=== PATIENT | female | born 1940 | race Hispanic/Latino ===

== ENCOUNTER → 2017-10-14 | Outpatient (CLI) | payer OTHER ==
[~2017-10-14] MED LIST: AMLO5TAB2 PO; ASPI-555 PO; BENA20TA10 PO; CALC-866 PO; CETI10TA57 PO; FLUTICASONE NASAL; FOLI1TAB15 PO; METFORMIN PO; OMEP40CA37 PO; ROSU5TAB PO; TRAM-355 PO; VITA1CAP PO; [UNRECOGNIZED DRUG - OTHER] PO
== END | disposition home or self-care (01) ==
LOC: RAH 11:49
PROVIDERS: ATTEND Internal Medicine
DX: M16.0 Bilateral primary osteoarthritis of hip (principal)
CPT/HCPCS: 73521

== ENCOUNTER → 2018-02-03 | Outpatient (CLI) | payer OTHER ==
[~2018-02-03] MED LIST changes: -AMLO5TAB2 PO; +AMLO5TAB7 PO; +COQ10 PO; +MONT10TA21 PO; -OMEP40CA37 PO; -TRAM-355 PO; +[UNRECOGNIZED DRUG - OTHER] PO
== END | disposition home or self-care (01) ==
LOC: RAH 14:46
PROVIDERS: ATTEND Internal Medicine
DX: M51.37 Other intervertebral disc degeneration, lumbosacral region (principal); M48.07 Spinal stenosis, lumbosacral region; M76.9 Unspecified enthesopathy, lower limb, excluding foot
CPT/HCPCS: 72148

== ENCOUNTER → 2018-03-12 | Outpatient (CLI) | payer OTHER | END | disposition home or self-care (01) | LOC: RAH 07:31 | PROVIDERS: ATTEND Internal Medicine Gastroenterology | DX: I12.9 Hypertensive chronic kidney disease with stage 1 through stage 4 chronic kidney disease, or unspecified chronic kidney disease (principal); E11.22 Type 2 diabetes mellitus with diabetic chronic kidney disease; N18.9 Chronic kidney disease, unspecified; Z90.5 Acquired absence of kidney; Z90.49 Acquired absence of other specified parts of digestive tract | CPT/HCPCS: 76700 ==

== ENCOUNTER → 2018-08-11 | Outpatient (CLI) | payer MEDICARE ==
[~2018-08-11] MED LIST changes: -AMLO5TAB7 PO; +AMLO5TAB9 PO
[2018-08-11 13:05] LABS: CREATININE 1.1 mg/dL (0.5-1.5)
== END | disposition home or self-care (01) ==
LOC: LAB 12:16
PROVIDERS: ATTEND Internal Medicine
DX: R10.11 Right upper quadrant pain (principal)
CPT/HCPCS: 36415; 82565; 84520

== ENCOUNTER → 2018-08-12 | Outpatient (CLI) | payer MEDICARE ==
[~2018-08-12] MED LIST changes: +GADODIAMIDE 5 MMOL/10 ML VIAL 5 MMOL/10 ML ML IV ONE
== END | disposition home or self-care (01) ==
LOC: RAH 07:26
PROVIDERS: ATTEND Internal Medicine
DX: R10.11 Right upper quadrant pain (principal); Z90.49 Acquired absence of other specified parts of digestive tract; Z90.5 Acquired absence of kidney
CPT/HCPCS: 74183; A9579

== ENCOUNTER → 2019-04-29 | Outpatient (CLI) | payer MEDICARE ==
[~2019-04-29] MED LIST changes: -GADODIAMIDE 5 MMOL/10 ML VIAL 5 MMOL/10 ML ML IV ONE
== END | disposition home or self-care (01) ==
LOC: RAH 09:22
PROVIDERS: ATTEND Internal Medicine
DX: G31.9 Degenerative disease of nervous system, unspecified (principal); I10 Essential (primary) hypertension; G45.9 Transient cerebral ischemic attack, unspecified; M47.819 Spondylosis without myelopathy or radiculopathy, site unspecified
CPT/HCPCS: 70450

== ENCOUNTER → 2019-05-04 | Outpatient (CLI) | payer MEDICARE | END | disposition home or self-care (01) | LOC: RAH 09:33 | PROVIDERS: ATTEND Internal Medicine | DX: I34.0 Nonrheumatic mitral (valve) insufficiency (principal); G45.9 Transient cerebral ischemic attack, unspecified; I10 Essential (primary) hypertension | CPT/HCPCS: 93306; 93880 ==

== ENCOUNTER → 2019-08-30 | Outpatient (CLI) | payer OTHER ==
[2019-08-30 13:13] LABS: BASOPHILS % (AUTO) 0.4 % (0.0-5.0); EOSINOPHILS % (AUTO) 1.9 % (0.0-8.0); HEMATOCRIT 39.4 % (36-48); LYMPHOCYTES % (AUTO) 16.8 % (21.0-51.0); MEAN CORPUSCULAR HEMOGLOBIN 31.6 pg (27.0-33.0); MEAN CORPUSCULAR HGB CONC 33.2 g/dL (32.0-36.0); MEAN CORPUSCULAR VOLUME 94.9 fL (79-99); MONOCYTES % (AUTO) 9.2 % (3.0-13.0); NEUTROPHILS % (AUTO) 71.3 % (40.0-77.0); PLATELET COUNT (AUTO) 273 K/uL (130-400); RED BLOOD CELL COUNT(AUTO) 4.15 MIL/uL (4.00-5.50); RED CELL DISTRIBUTION WIDTH 13.2 % (11.0-15.5); WHITE BLOOD COUNT (AUTO) 5.4 K/uL (4.8-10.8)
[2019-08-30 13:20] LABS: CREATININE 1.2 mg/dL (0.5-1.5); POTASSIUM 4.2 mmol/L (3.5-5.1)
== END | disposition home or self-care (01) ==
LOC: LAB 11:58
PROVIDERS: ATTEND Urology
DX: C64.1 Malignant neoplasm of right kidney, except renal pelvis (principal)
CPT/HCPCS: 36415; 80048; 85025

== ENCOUNTER → 2019-09-05 | Outpatient (CLI) | payer MEDICARE, OTHER ==
[~2019-09-05] MED LIST changes: +AMLO-257 PO; -AMLO5TAB9 PO; -ASPI-555 PO; +ASPI-556 PO; +IOHEXOL-350 75 ML VIAL IV ONE
== END | disposition home or self-care (01) ==
LOC: RAH 08:51
PROVIDERS: ATTEND Urology
DX: N83.202 Unspecified ovarian cyst, left side (principal); C64.1 Malignant neoplasm of right kidney, except renal pelvis
CPT/HCPCS: 74178; Q9967

== ENCOUNTER → 2019-09-26 | Outpatient (CLI) | payer OTHER ==
[~2019-09-26] MED LIST changes: -AMLO-257 PO; +AMLO5TAB9 PO; +ASPI-555 PO; -ASPI-556 PO; -IOHEXOL-350 75 ML VIAL IV ONE
== END | disposition home or self-care (01) ==
LOC: RAH 11:01
PROVIDERS: ATTEND Obstetrics & Gynecology
DX: N83.291 Other ovarian cyst, right side (principal); N83.292 Other ovarian cyst, left side
CPT/HCPCS: 76856

== ENCOUNTER → 2019-10-24 | Outpatient (CLI) | payer OTHER | END | disposition home or self-care (01) | LOC: RAH 11:38 | PROVIDERS: ATTEND Internal Medicine | DX: Z12.31 Encounter for screening mammogram for malignant neoplasm of breast (principal) ==

== ENCOUNTER → 2019-11-08 | Outpatient (CLI) | payer OTHER ==
[~2019-11-08] MED LIST changes: -ASPI-555 PO; +ASPI-556 PO
== END | disposition home or self-care (01) ==
LOC: RAH 11:24
PROVIDERS: ATTEND Obstetrics & Gynecology
DX: N83.291 Other ovarian cyst, right side (principal); N83.292 Other ovarian cyst, left side; Z90.710 Acquired absence of both cervix and uterus
CPT/HCPCS: 76857

== ENCOUNTER → 2020-02-13 | Outpatient (CLI) | payer OTHER | END | disposition home or self-care (01) | LOC: RAH 10:00 | PROVIDERS: ATTEND Obstetrics & Gynecology | DX: N83.291 Other ovarian cyst, right side (principal); N83.292 Other ovarian cyst, left side | CPT/HCPCS: 76856 ==

== ENCOUNTER → 2020-06-15 | Outpatient (CLI) | payer OTHER ==
[~2020-06-15] MED LIST changes: +AMLO-257 PO; -AMLO5TAB9 PO
== END | disposition home or self-care (01) ==
LOC: RAH 08:01
PROVIDERS: ATTEND Internal Medicine Gastroenterology
DX: R10.11 Right upper quadrant pain (principal); Z90.49 Acquired absence of other specified parts of digestive tract
CPT/HCPCS: 76700

== ENCOUNTER 2020-06-30 13:05 | Emergency (ER) | payer OTHER ==
[2020-06-30 14:39] LABS: BASOPHILS % (AUTO) 0.6 % (0.0-5.0); EOSINOPHILS % (AUTO) 1.9 % (0.0-8.0); HEMATOCRIT 44.9 % (36-48); LYMPHOCYTES % (AUTO) 20.7 % (21.0-51.0); MEAN CORPUSCULAR HEMOGLOBIN 31.1 pg (27.0-33.0); MEAN CORPUSCULAR HGB CONC 33.4 g/dL (32.0-36.0); MEAN CORPUSCULAR VOLUME 93.2 fL (79-99); MONOCYTES % (AUTO) 7.6 % (3.0-13.0); PLATELET COUNT (AUTO) 307 K/uL (130-400); RED BLOOD CELL COUNT(AUTO) 4.82 MIL/uL (4.00-5.50); WHITE BLOOD COUNT (AUTO) 5.2 K/uL (4.8-10.8)
[2020-06-30 15:32] LABS: CREATININE 1.1 mg/dL (0.5-1.5); POTASSIUM 4.3 mmol/L (3.5-5.1)
[2020-06-30 15:36] LABS: ALBUMIN 4.7 g/dL (3.5-5.0); BILIRUBIN,TOTAL 0.3 mg/dL (0.2-1.0); TOTAL PROTEIN, SERUM 8.4 g/dL (6.0-8.3)
== END 2020-06-30 16:40 | disposition home or self-care (01) ==
LOC: EDH 13:05
DX: R53.1 Weakness (principal); R53.83 Other fatigue; R06.02 Shortness of breath; Z20.822 Contact with and (suspected) exposure to COVID-19; I10 Essential (primary) hypertension; E11.9 Type 2 diabetes mellitus without complications
CPT/HCPCS: 36415; 71045; 80053; 84484; 85025; 87426; 93005; 99285; U0003

== ENCOUNTER → 2020-08-08 | Outpatient (CLI) | payer OTHER | END | disposition home or self-care (01) | LOC: OIH 10:26 | PROVIDERS: ATTEND Internal Medicine Cardiovascular Disease | DX: Z13.6 Encounter for screening for cardiovascular disorders (principal) | CPT/HCPCS: 75571 ==

== ENCOUNTER → 2020-08-14 | Outpatient (CLI) | payer OTHER | END | disposition home or self-care (01) | LOC: RAH 10:59 | PROVIDERS: ATTEND Obstetrics & Gynecology | DX: N83.292 Other ovarian cyst, left side (principal); N83.291 Other ovarian cyst, right side | CPT/HCPCS: 76856 ==

== ENCOUNTER → 2020-08-15 | Outpatient (CLI) | payer OTHER | END | disposition home or self-care (01) | LOC: SHCH 08:52 | PROVIDERS: ATTEND Internal Medicine Cardiovascular Disease | DX: R06.09 Other forms of dyspnea (principal) | CPT/HCPCS: 93306; 93356 ==

== ENCOUNTER → 2020-09-06 | Outpatient (CLI) | payer OTHER ==
[~2020-09-06] VITALS: Ht 167.6 cm; Wt 74.8 kg
[~2020-09-06] MED LIST changes: +REGADENOSON 0.4 MG/5 ML PF SYG IVP SCH
== END | disposition home or self-care (01) ==
LOC: SHCH 08:44
PROVIDERS: ATTEND Internal Medicine Cardiovascular Disease
DX: I25.10 Atherosclerotic heart disease of native coronary artery without angina pectoris (principal)
CPT/HCPCS: 78452; 93017; 96374; A9500 ×2

== ENCOUNTER → 2020-11-29 | Outpatient (CLI) | payer OTHER ==
[~2020-11-29] MED LIST changes: -REGADENOSON 0.4 MG/5 ML PF SYG IVP SCH
== END | disposition home or self-care (01) ==
LOC: RAH 09:44
PROVIDERS: ATTEND Internal Medicine
DX: R10.11 Right upper quadrant pain (principal); R07.81 Pleurodynia
CPT/HCPCS: 71046; 71100

== ENCOUNTER → 2022-08-27 | Outpatient (CLI) | payer OTHER ==
[~2022-08-27] MED LIST changes: +BENA-8 PO; -BENA20TA10 PO; +MONT-46 PO; -MONT10TA21 PO
== END | disposition home or self-care (01) ==
LOC: RAH 12:21
PROVIDERS: ATTEND Clinical Nurse Specialist Family Health
DX: M17.12 Unilateral primary osteoarthritis, left knee (principal); M25.362 Other instability, left knee
CPT/HCPCS: 73560

== ENCOUNTER → 2024-04-07 | Outpatient (CLI) | payer OTHER ==
--- NOTE | 2024-04-07 09:19 | HMCIMG ---
CT ABDOMEN/PELVIS W/O CONTRAST HISTORY: Right renal cancer COMPARISON: 09/05/2019 TECHNIQUE: Multiple sequential axial images of the abdomen and pelvis were obtained from the dome of the diaphragm through symphysis pubis. Patient was not given contrast through intravenous route. Oral contrast was not given. FINDINGS: No pleural effusion is seen bilaterally. There is no evidence of parenchymal disease or pulmonary nodule of the visualized lower lungs. Degenerative changes of the thoracolumbar spine are present. The heart is not enlarged. Coronary arterial calcifications are seen. Postcholecystectomy changes are seen. Liver is enlarged with fatty changes measuring 17 cm. There is mild diverticulosis. The liver, spleen, adrenal glands and pancreas are unremarkable. Right kidney has been removed. No hydronephrosis is seen of the left kidney. No evidence of renal stone is seen. There is diverticulosis. Fecal material is seen in the colon. There are normal size retroperitoneal and mesenteric lymph nodes. No ascites is seen. Atherosclerotic changes are present. Appendix is not seen consistent with post appendectomy. There is complex right ovarian cyst with increased density measuring 3.5 x 3.5 cm also seen on previous study Pelvic sidewalls are symmetric bilaterally. Bladder is poorly distended. IMPRESSION: 1. Complex right ovarian cysts measuring 3.5 cm also seen on previous study. 2. Diverticulosis. CT was performed with one or more following dose reduction techniques: automated exposure control, adjustment of the mA and kv according to patient's size, or use of a iterative reconstruction technique.
== END | disposition home or self-care (01) ==
LOC: RAH 08:19
PROVIDERS: ATTEND Urology
DX: C64.1 Malignant neoplasm of right kidney, except renal pelvis (principal); K57.90 Diverticulosis of intestine, part unspecified, without perforation or abscess without bleeding; N83.291 Other ovarian cyst, right side; N32.89 Other specified disorders of bladder; K76.0 Fatty (change of) liver, not elsewhere classified; I70.0 Atherosclerosis of aorta; I25.10 Atherosclerotic heart disease of native coronary artery without angina pectoris; M47.815 Spondylosis without myelopathy or radiculopathy, thoracolumbar region; Z90.49 Acquired absence of other specified parts of digestive tract; R19.5 Other fecal abnormalities
CPT/HCPCS: 74176

== ENCOUNTER → 2025-02-28 | Outpatient (CLI) | payer OTHER ==
--- NOTE | 2025-03-04 16:17 | HMCIMG ---
CLINICAL INDICATION: Age-related osteoporosis without current pathological fracture COMPARISON: None available TECHNIQUE: Bone densitometry is performed of the lumbar spine and left hip. FINDINGS: Total BMD of lumbar spine is 0.923 g/cm2 with a T-score of -1.1 and Z-score is 1.7. Total BMD of left hip is 0.799 g/cm2 with a T-score of -1.2 and Z-score is 1.0. FRAX SCORE: The 10 year fracture risk for a major osteoporotic fracture and hip fracture 10% IMPRESSION: 1. Osteopenia of the lumbar spine and left hip 2. I would recommend follow-up in 13 months World Health Organization criteria for BMD interpretation classify patients as Normal (T-score at or above -1.0), Osteopenic (T-score between -1.0 and -2.5), or Osteoporotic (T-score at or below -2.5). FRAX SCORE: A. All treatment decisions require clinical judgment and consideration of individual patient factors, including patient preferences, comorbidities, previous drug use, risk factors not captured in the FRAX model (e.g., frailty, falls, vitamin D deficiency, increased bone turnover, interval significant decline in bone density) and possible [id number]-estimation of fracture risk by FRAX. B. In addition, the NOF Guide recommends that FDA-approved medical therapies be considered in postmenopausal women and men age greater than or equal to 50 years with a: i. Hip or vertebral (clinical or morphometric) fracture. ii. T-score of less than or equal to -2.5 at the spine or hip. iii. Ten-year fracture probability by FRAX of greater than or equal to 3% for hip fracture of greater than or equal to 20% for major osteoporotic fracture.
== END | disposition home or self-care (01) ==
LOC: RAH 08:03
PROVIDERS: ATTEND Internal Medicine
DX: M85.852 Other specified disorders of bone density and structure, left thigh (principal); M85.88 Other specified disorders of bone density and structure, other site; M81.0 Age-related osteoporosis without current pathological fracture
CPT/HCPCS: 77080